=== PATIENT | female | born 1965 | race Caucasian/White ===

== ENCOUNTER → 2016-12-24 | Outpatient (CLI) | payer OTHER ==
--- NOTE | 2016-12-24 20:27 | DI ---
LEFT THUMB EXAM, 12/24/2016 3:45 PM: Clinical History: Left thumb pain. Previous Exam: None at this facility. 3 views are submitted. There is no acute soft tissue, osseous, or joint abnormality. There is joint s pace narrowing in the IP joint as well as in the DIP and PIP joints of the other fingers. There are n o soft tissue calcifications or erosive bony changes. No alignment abnormalities are noted. Reading: Except for mild degenerative change of the left IP joint of the common, as well as in the PIP and DIP joints of the remaining fingers, the study is normal.
== END ==
LOC: ORTHO 15:55
PROVIDERS: ATTEND Orthopaedic Surgery
DX: S63.602D Unspecified sprain of left thumb, subsequent encounter (principal); M19.042 Primary osteoarthritis, left hand
CPT/HCPCS: 73140

== ENCOUNTER → 2017-03-09 | Outpatient (CLI) | payer OTHER | LOC: MOB LAB 11:03 | DX: N39.0 Urinary tract infection, site not specified (principal) | CPT/HCPCS: 87077; 87088; 87186 ==

== ENCOUNTER → 2017-03-25 | Outpatient (CLI) | payer OTHER ==
[2017-03-25 15:55] LABS: BILIRUBIN,URINE NEGATIVE (NEG); CLARITY,URINE CLEAR (CLEAR); COLOR,URINE YELLOW; GLUCOSE, URINE (UA) NEGATIVE (NEG); NITRATE,URINE NEGATIVE (NEG); OCCULT BLOOD,URINE NEGATIVE (NEG); PROTEIN,URINE NEGATIVE (NEG); UROBILINOGEN,URINE 0.2 mg/dL (0.2)
[2017-03-25 16:05] LABS: BACTERIA,URINE MANY; SQUAMOUS EPITHELIAL CELL,UR MANY; URINE SAMPLE TYPE VOIDED SPECIMEN; URINE SPECIFIC GRAVITY - MAN 1.033; WBC,URINE 0-3
== END ==
LOC: LAB 15:42
PROVIDERS: ATTEND Family Medicine
DX: R30.0 Dysuria (principal)
CPT/HCPCS: 81001; 87088